=== PATIENT | female | born 1935 | race Asian ===

== ENCOUNTER 2018-01-22 18:42 | Inpatient (IN) | payer MEDICARE, OTHER ==
[2018-01-22 19:26] LABS: ADD MAN DIFF? NO
[2018-01-22 19:32] LABS: WHITE BLOOD COUNT 6.8 10^3/ul (4.8-10.8)
[2018-01-22 19:32] LABS: BASOPHILS % 0.3 % (0.0-2.0); EOSINOPHILS # 0.1 10^3/ul (0.0-0.5); EOSINOPHILS % 2.1 % (0.0-7.0); HEMATOCRIT 35.7 % (37.0-47.0); HEMOGLOBIN 11.7 g/dl (12.0-16.0); LYMPHOCYTES # 2.1 10^3/ul (0.8-2.9); LYMPHOCYTES % 30.6 % (15.0-51.0); MEAN CORPUSCULAR HEMOGLOBIN 30.9 pg (29.0-33.0); MEAN CORPUSCULAR HGB CONC 32.8 g/dl (32.0-37.0); MEAN CORPUSCULAR VOLUME 94.2 fl (82.0-101.0); MEAN PLATELET VOLUME 10.1 fl (7.4-10.4); MONOCYTE # 0.5 10^3/ul (0.3-0.9); MONOCYTES % 6.6 % (0.0-11.0); NEUTROPHIL # 4.1 10^3/ul (1.6-7.5); NEUTROPHILS % 60.1 % (39.0-77.0); PLATELET COUNT 200 10^3/UL (140-415); RED BLOOD COUNT 3.79 10^6/ul (4.20-5.40); RED CELL DISTRIBUTION WIDTH 12.5 % (11.5-14.5)
[2018-01-22] MEDS: SOD CHLORIDE 0.9% 1,000 ML IV (19:36)
[2018-01-22 19:49] LABS: ALANINE AMINOTRANSFERASE 16 IU/L (13-69); ALBUMIN 3.5 g/dl (3.3-4.9); ALBUMIN/GLOBULIN RATIO 1.09; ALKALINE PHOSPHATASE 63 IU/L (42-121); ANION GAP 14 (8-16); ASPARTATE AMINO TRANSFERASE 26 IU/L (15-46); BILIRUBIN,TOTAL 0.2 mg/dl (0.2-1.3); BLOOD UREA NITROGEN 29 mg/dl (7-20); CALCIUM 9.7 mg/dl (8.4-10.2); CARBON DIOXIDE 32 mmol/L (21-31); CHLORIDE 102 mmol/L (97-110); CREATININE 1.26 mg/dl (0.44-1.00); GLUCOSE 151 mg/dl (70-220); SODIUM 145 mmol/L (135-144); TOTAL PROTEIN 6.7 g/dl (6.1-8.1)
[2018-01-22 19:51] LABS: INR 0.93; PROTIME 12.6 Sec (11.9-14.9)
[2018-01-22 19:52] LABS: PARTIAL THROMBOPLASTIN TIME 28.8 Sec (25.0-35.0)
[2018-01-22 20:01] LABS: TROPONIN-I < 0.012 ng/ml (0.00-0.12)
[2018-01-22 21:32] LABS: ADD UMIC YES; UR ASCORBIC ACID NEGATIVE (NEGATIVE); UR BACTERIA FEW /HPF (NONE SEEN); UR BILIRUBIN (Dip) NEGATIVE (NEGATIVE); UR BLOOD (Dip) 1+ mg/dL (NEGATIVE); UR CLARITY CLEAR (CLEAR); UR COLOR STRAW (YELLOW); UR GLUCOSE (Dip) NEGATIVE (NEGATIVE); UR KETONES (Dip) NEGATIVE (NEGATIVE); UR LEUKOCYTE ESTERASE (Dip) NEGATIVE Leu/ul (NEGATIVE); UR NITRITE (Dip) NEGATIVE (NEGATIVE); UR RBC 1 /HPF (0-5); UR SPECIFIC GRAVITY (Dip) 1.006 (1.003-1.030); UR TOTAL PROTEIN (Dip) NEGATIVE (NEGATIVE); UR UROBILINOGEN (Dip) NEGATIVE (NEGATIVE); UR WBC 1 /HPF (0-5)
[2018-01-22] MEDS: POTASSIUM CHLORIDE (SR) 20 MEQ TAB PO (21:48)
[2018-01-23] MEDS: AMLODIPINE 5 MG TAB PO ×2 (00:33→08:54)
[2018-01-23] MEDS: ZOLPIDEM 5 MG TAB PO (00:33)
[2018-01-23] MEDS ORDERED: ONDANSETRON 4 MG INJ IV (05:30)
[2018-01-23] MEDS ORDERED: NACL 0.9% 3 ML SYG IV (05:30)
[2018-01-23] MEDS ORDERED: NITROGLYCERIN (SL) 0.4 MG TAB SL (05:30)
[2018-01-23] MEDS ORDERED: ALBUTEROL/IPRATROPIUM (NEB) 3 ML AMP HHN (05:30)
[2018-01-23] MEDS ORDERED: morphine 2 MG INJ IV (05:30)
[2018-01-23] MEDS ORDERED: ACETAMINOPHEN 325 MG TAB PO ×2 (05:30)
[2018-01-23 06:25] LABS: ADD MAN DIFF? NO
[2018-01-23 06:28] LABS: WHITE BLOOD COUNT 7.3 10^3/ul (4.8-10.8)
[2018-01-23 06:28] LABS: BASOPHILS % 0.5 % (0.0-2.0); EOSINOPHILS # 0.3 10^3/ul (0.0-0.5); EOSINOPHILS % 3.4 % (0.0-7.0); HEMATOCRIT 34.1 % (37.0-47.0); HEMOGLOBIN 11.3 g/dl (12.0-16.0); LYMPHOCYTES # 2.1 10^3/ul (0.8-2.9); LYMPHOCYTES % 28.7 % (15.0-51.0); MEAN CORPUSCULAR HEMOGLOBIN 30.8 pg (29.0-33.0); MEAN CORPUSCULAR HGB CONC 33.1 g/dl (32.0-37.0); MEAN CORPUSCULAR VOLUME 92.9 fl (82.0-101.0); MEAN PLATELET VOLUME 10.3 fl (7.4-10.4); MONOCYTE # 0.5 10^3/ul (0.3-0.9); MONOCYTES % 6.8 % (0.0-11.0); NEUTROPHIL # 4.4 10^3/ul (1.6-7.5); NEUTROPHILS % 60.5 % (39.0-77.0); PLATELET COUNT 181 10^3/UL (140-415); RED BLOOD COUNT 3.67 10^6/ul (4.20-5.40); RED CELL DISTRIBUTION WIDTH 12.5 % (11.5-14.5)
[2018-01-23 06:45] LABS: HEMOGLOBIN A1C 5.8 % (0-5.9)
[2018-01-23 07:00] LABS: ALANINE AMINOTRANSFERASE 21 IU/L (13-69); ALBUMIN 3.1 g/dl (3.3-4.9); ALBUMIN/GLOBULIN RATIO 0.96; ALKALINE PHOSPHATASE 57 IU/L (42-121); ANION GAP 10 (8-16); ASPARTATE AMINO TRANSFERASE 26 IU/L (15-46); BLOOD UREA NITROGEN 24 mg/dl (7-20); CALCIUM 9.7 mg/dl (8.4-10.2); CARBON DIOXIDE 33 mmol/L (21-31); CHLORIDE 105 mmol/L (97-110); CHOL/HDL RATIO 2.7 RATIO; CHOLESTEROL 127 mg/dl (100-200); CREATININE 0.78 mg/dl (0.44-1.00); GLUCOSE 95 mg/dl (70-220); HDL CHOLESTEROL 46 mg/dl (33-92); LDL CHOLESTEROL,CALCULATED 69 mg/dl; MAGNESIUM 1.5 mg/dl (1.7-2.5); SODIUM 145 mmol/L (135-144); TOTAL PROTEIN 6.3 g/dl (6.1-8.1); TRIGLYCERIDES 62 mg/dl (0-149)
[2018-01-23] MEDS: ASPIRIN 81 MG TAB PO (08:51)
[2018-01-23] MEDS: LOSARTAN 50 MG TAB PO (08:52)
[2018-01-23] MEDS: MELOXICAM 7.5 MG TAB PO (08:52)
[2018-01-23] MEDS: POTASSIUM CHLORIDE 100 ML IVPB (08:54)
[2018-01-23] MEDS: METOPROLOL (XL) 100 MG TAB PO (08:54)
[2018-01-23] MEDS: ENOXAPARIN 40 MG/0.4 ML SYG SC (09:19)
[2018-01-23] MEDS: POTASSIUM CHLORIDE (SR) 20 MEQ TAB PO (11:09)
[2018-01-23 11:20] LABS: CREATINE KINASE 38 IU/L (23-200)
[2018-01-23 11:30] LABS: CK INDEX 2.5; CK-MB 0.95 ng/ml (0.0-2.4)
[2018-01-23 11:35] LABS: TROPONIN-I < 0.012 ng/ml (0.00-0.12)
[2018-01-23] MEDS: ATORVASTATIN 20 MG TAB PO (20:14)
[2018-01-24] MEDS: hydrALAzine 20 MG INJ IV (04:30)
[2018-01-24 06:02] LABS: ADD MAN DIFF? NO
[2018-01-24 06:05] LABS: WHITE BLOOD COUNT 6.9 10^3/ul (4.8-10.8)
[2018-01-24 06:05] LABS: BASOPHILS % 0.6 % (0.0-2.0); EOSINOPHILS # 0.2 10^3/ul (0.0-0.5); EOSINOPHILS % 3.5 % (0.0-7.0); HEMATOCRIT 38.2 % (37.0-47.0); HEMOGLOBIN 12.5 g/dl (12.0-16.0); LYMPHOCYTES # 2.7 10^3/ul (0.8-2.9); LYMPHOCYTES % 39.1 % (15.0-51.0); MEAN CORPUSCULAR HEMOGLOBIN 30.3 pg (29.0-33.0); MEAN CORPUSCULAR HGB CONC 32.7 g/dl (32.0-37.0); MEAN CORPUSCULAR VOLUME 92.5 fl (82.0-101.0); MEAN PLATELET VOLUME 10.5 fl (7.4-10.4); MONOCYTE # 0.5 10^3/ul (0.3-0.9); MONOCYTES % 6.6 % (0.0-11.0); NEUTROPHIL # 3.4 10^3/ul (1.6-7.5); NEUTROPHILS % 50.1 % (39.0-77.0); PLATELET COUNT 214 10^3/UL (140-415); RED BLOOD COUNT 4.13 10^6/ul (4.20-5.40); RED CELL DISTRIBUTION WIDTH 12.4 % (11.5-14.5)
[2018-01-24 06:39] LABS: ANION GAP 11 (8-16); BLOOD UREA NITROGEN 16 mg/dl (7-20); CALCIUM 10.1 mg/dl (8.4-10.2); CARBON DIOXIDE 32 mmol/L (21-31); CHLORIDE 105 mmol/L (97-110); CREATININE 0.68 mg/dl (0.44-1.00); GLUCOSE 108 mg/dl (70-220); MAGNESIUM 1.4 mg/dl (1.7-2.5); PHOSPHORUS 2.7 mg/dl (2.5-4.9); POTASSIUM 3.8 mmol/L (3.5-5.1); SODIUM 144 mmol/L (135-144)
[2018-01-24] MEDS: METOPROLOL (XL) 100 MG TAB PO (08:46)
[2018-01-24] MEDS: ASPIRIN 81 MG TAB PO (08:47)
[2018-01-24] MEDS: MELOXICAM 7.5 MG TAB PO (08:47)
[2018-01-24] MEDS: AMLODIPINE 5 MG TAB PO (08:47)
[2018-01-24] MEDS: LOSARTAN 50 MG TAB PO (08:47)
[2018-01-24] MEDS: ENOXAPARIN 40 MG/0.4 ML SYG SC (08:49)
[2018-01-24] MEDS: MAGNESIUM OXIDE 400 MG TAB PO (10:53)
[2018-01-24] MEDS: ATORVASTATIN 20 MG TAB PO (21:34)
[2018-01-25 06:20] LABS: ALBUMIN 3.1 g/dl (3.3-4.9); ANION GAP 11 (8-16); BLOOD UREA NITROGEN 18 mg/dl (7-20); CALCIUM 9.3 mg/dl (8.4-10.2); CARBON DIOXIDE 28 mmol/L (21-31); CHLORIDE 104 mmol/L (97-110); CREATININE 0.66 mg/dl (0.44-1.00); GLUCOSE 108 mg/dl (70-220); MAGNESIUM 1.3 mg/dl (1.7-2.5); PHOSPHORUS 3.2 mg/dl (2.5-4.9); POTASSIUM 3.5 mmol/L (3.5-5.1); SODIUM 139 mmol/L (135-144)
[2018-01-25] MEDS: AMLODIPINE 5 MG TAB PO (08:19)
[2018-01-25] MEDS: ASPIRIN 81 MG TAB PO (08:19)
[2018-01-25] MEDS: MELOXICAM 7.5 MG TAB PO (08:19)
[2018-01-25] MEDS: LOSARTAN 50 MG TAB PO (08:19)
[2018-01-25] MEDS: ENOXAPARIN 40 MG/0.4 ML SYG SC (08:23)
[2018-01-25] MEDS: POTASSIUM CHLORIDE (SR) 20 MEQ TAB PO (09:22)
[2018-01-25] MEDS ORDERED: DOCUSATE SODIUM 100 MG CAP PO (10:30)
[2018-01-25] MEDS: MAGNESIUM SULFATE 4 GM/100 ML 100 ML IVPB (11:22)
[2018-01-25] MEDS: METOPROLOL (XL) 100 MG TAB PO (11:38)
[2018-01-25] MEDS: POLYETHYLENE GLYCOL 17 GM PACKET PO (18:04)
[2018-01-25] MEDS: ATORVASTATIN 20 MG TAB PO (21:10)
[2018-01-26] MEDS: hydrALAzine 20 MG INJ IV (01:46)
[2018-01-26 05:27] LABS: ALBUMIN 3.4 g/dl (3.3-4.9); ANION GAP 10 (8-16); BLOOD UREA NITROGEN 16 mg/dl (7-20); CALCIUM 9.5 mg/dl (8.4-10.2); CARBON DIOXIDE 30 mmol/L (21-31); CHLORIDE 105 mmol/L (97-110); CREATININE 0.66 mg/dl (0.44-1.00); GLUCOSE 119 mg/dl (70-220); MAGNESIUM 2.1 mg/dl (1.7-2.5); PHOSPHORUS 2.9 mg/dl (2.5-4.9); POTASSIUM 4.2 mmol/L (3.5-5.1); SODIUM 141 mmol/L (135-144)
[2018-01-26] MEDS: ASPIRIN 81 MG TAB PO (09:50)
[2018-01-26] MEDS: POLYETHYLENE GLYCOL 17 GM PACKET PO (09:50)
[2018-01-26] MEDS: MELOXICAM 7.5 MG TAB PO (09:51)
[2018-01-26] MEDS: LOSARTAN 50 MG TAB PO (09:51)
[2018-01-26] MEDS: AMLODIPINE 5 MG TAB PO (09:52)
[2018-01-26] MEDS: METOPROLOL (XL) 100 MG TAB PO (09:52)
[2018-01-26] MEDS: ENOXAPARIN 40 MG/0.4 ML SYG SC (09:56)
[2018-01-26] MEDS ORDERED: BISACODYL (EC) 5 MG TAB PO (15:00)
[2018-01-26] MEDS: morphine LIQ (10 MG/5 ML) CUP PO (19:48)
[2018-01-26] MEDS: ATORVASTATIN 20 MG TAB PO (21:42)
[2018-01-27 06:22] LABS: ALBUMIN 3.5 g/dl (3.3-4.9); ANION GAP 12 (8-16); BLOOD UREA NITROGEN 15 mg/dl (7-20); CALCIUM 9.1 mg/dl (8.4-10.2); CARBON DIOXIDE 28 mmol/L (21-31); CHLORIDE 105 mmol/L (97-110); CREATININE 0.65 mg/dl (0.44-1.00); GLUCOSE 102 mg/dl (70-220); MAGNESIUM 1.9 mg/dl (1.7-2.5); PHOSPHORUS 3.3 mg/dl (2.5-4.9); POTASSIUM 4.3 mmol/L (3.5-5.1); SODIUM 141 mmol/L (135-144)
[2018-01-27] MEDS: MELOXICAM 7.5 MG TAB PO (09:03)
[2018-01-27] MEDS: ASPIRIN 81 MG TAB PO (09:04)
[2018-01-27] MEDS: LOSARTAN 50 MG TAB PO (09:05)
[2018-01-27] MEDS: AMLODIPINE 5 MG TAB PO (09:10)
[2018-01-27] MEDS: METOPROLOL (XL) 100 MG TAB PO (09:10)
[2018-01-27] MEDS: ENOXAPARIN 40 MG/0.4 ML SYG SC (09:14)
[2018-01-27] MEDS: hydrALAzine 20 MG INJ IV (11:07)
== END 2018-01-27 17:20 | DRG 312 ==
LOC: E/R 18:42 → MS1 01-26 16:44 → MS4 20:34
DX: R55 Syncope and collapse (principal); E87.1 Hypo-osmolality and hyponatremia; E87.6 Hypokalemia; E83.42 Hypomagnesemia; D64.9 Anemia, unspecified; K59.09 Other constipation; I10 Essential (primary) hypertension; Z87.440 Personal history of urinary (tract) infections
CPT/HCPCS: 36415; 70450; 71045; 80048; 80053; 80061; 80069; 81001; 82550; 82553; 83036; 83735; 84100; 84443; 84484; 85025; 85610; 85730; 87086; 93005; 93306; 93880; 97116; 97162; 97165; 97530; 99285-25; G0378